=== PATIENT | male | born 1955 | race Caucasian/White ===

== ENCOUNTER 2022-05-24 08:04 | Emergency (ER) | payer OTHER, SELFPAY ==
[2022-05-24] VITALS (8 sets, daily range): BP systolic 122–141; BP diastolic 69–79; PULSE 63–84; RESP 18–22; TEMP 36.4; O2SAT 92–94; BMI 25.8
--- NOTE | 2022-05-24 08:07 | ED.SOB ---
HPI - SOB/Dyspnea General Chief Complaint: Shortness of Breath/Dyspnea Stated Complaint: RESP DISTRESS Time Seen by Provider: 05/24/22 08:05 History of Present Illness HPI Narrative: 67-year-old gentleman visiting from [place] for a week on the [facility]. He has a history of lymphoma and gastrointestinal stromal tumor (GIST). He has no respiratory history nor diabetes, hypertension, cardiac disease or any other health condition. He is receiving no active cancer treatment at this time but only periodic surveillance. He noticed the onset of shortness of breath yesterday. He was doing some cleaning in a [place] environment yesterday noticed a little bit of breathing difficulty. He had trouble sleeping during the night and woke up this morning quite short of breath and called 911. Paramedics arrived on scene and administered albuterol with some significant improvement. They noted his oxygen saturation to be as low as 89%. He was breathing much better after the treatment and got him up to walk for a road test and found that his saturations dropped again so they called for lift transport [place] hospital [place]. Airlift finds him to be breathing easily initially with the respiratory rate in the high 20s but then ultimately around 20 most recently. They had him on 2 L of oxygen. He reports feeling quite a bit better now compared to earlier. The current dyspnea or chest pain. He denies fever, cough, chills, nausea, vomiting, diarrhea or pain anywhere else or any other current symptoms. Related Data Previous Rx's Medication Instructions Recorded albuterol sulfate 90 mcg/actuation 2 puff inhalation Q3H PRN 05/24/22 aerosol inhaler shortness of breath or wheezing #6.7 grams nicotine (polacrilex) 4 mg gum 4 mg buccal Q1H PRN nicotine 05/24/22 cravings #100 ea nicotine 21 mg/24 hr daily 1 patch transdermal DAILY #28 ea 05/24/22 transdermal patch Review of Systems Review of Systems Narrative: Complete review of systems is negative other than as noted above. Patient History Social History Smoking Status: Current every day smoker Smoking Status: Current every day smoker Exam Narrative Exam Narrative: GENERAL: Alert, cooperative and in no distress. HEAD: Atraumatic. Normocephalic. EYES: Sclera are clear without icterus. Extraocular movements are full. ENT: No rhinorrhea. Oropharynx is moist. Mouth exam is benign. NECK: Supple. Full range of motion. CARDIOVASCULAR: Normal rate and rhythm without murmur gallop or rub. RESPIRATORY: Clear to auscultation. Breath sounds equal bilaterally. No wheezes, rales, or rhonchi. GASTROINTESTINAL: Abdomen soft, non-tender, nondistended. EXTREMITIES: No edema, full range of motion. No obvious trauma. BACK: Normal inspection, no CVA tenderness. NEURO: Nonfocal examination, normal speech, normal gait. SKIN: No rash or erythema of visible areas PSYCH: Normally oriented. Normal range of affect. Appropriate behavior Initial Vital Signs Initial Vital Signs: Vital Signs Temperature 97.5 F L 05/24/22 08:11 Pulse Rate 68 05/24/22 08:11 Respiratory Rate 20 05/24/22 08:11 Blood Pressure 141/76 H 05/24/22 08:11 Pulse Oximetry 94 05/24/22 08:11 Oxygen Delivery Method 05/24/22 08:11 Course Orders Ordered: ED Orders 05/24/22 08:08 XR chest 2V Stat Complete Blood Count AUTO DIFF Stat Comprehensive Metabolic Panel Stat EKG-12 Lead Stat Measure peak expiratory flow ONCE RT Consult Eval and Treat Now 05/24/22 08:20 COVID19 -Nasal RAPID/Pre-Proc Stat Vital Signs Vital signs: Vital Signs - 8 hr 05/24/22 08:11 05/24/22 08:23 05/24/22 08:24 Temperature 97.5 F L Pulse Rate 68 78 84 Respiratory Rate 20 20 Blood Pressure 141/76 H 141/76 H Pulse Oximetry 94 94 92 Oxygen Delivery Method Room Air Room Air 05/24/22 08:30 05/24/22 08:30 Temperature Pulse Rate 82 Respiratory Rate 22 Blood Pressure 127/79 Pulse Oximetry 93 Oxygen Delivery Method MDM - SOB/Dyspnea Lab Data Result diagrams: 05/24/22 08:08 05/24/22 08:08 Labs: Lab Results 05/24/22 05/24/22 05/24/22 Range/Units 08:08 08:08 08:08 WBC 11.7 H (4.5-11.0) X10^3/uL RBC 4.52 (4.5-5.9) X10^6/uL Hgb 14.3 (13.5-17.5) g/dL Hct 43.3 (41-53) % MCV 95.8 (80-100) fL MCH 31.7 (26-34) PG MCHC 33.1 (30-36) % RDW 14.1 (11.6-14.8) % Plt Count 303 (150-400) X10^3/uL Neut % (Auto) 69.5 (50-75) % Lymph % (Auto) 18.8 L (25-40) % Freeborn % (Auto) 9.2 (3-14) % Eos % (Auto) 1.7 L (2-4) % Baso % (Auto) 0.8 (0-2) % Neut # (Auto) 8100 H (5867-5420) /uL Lymph # (Auto) 2200 (8195-6178) /uL Freeborn # (Auto) 1100 H (0-900) /uL Eos # (Auto) 200 (0-450) /uL Baso # (Auto) 100 (0-100) /uL Sodium 141 (137-145) mmol/L Potassium 4.0 (3.4-5.1) mmol/L Chloride 106 (98-107) mmol/L Carbon Dioxide 28 (22-32) mmol/L BUN 13 (9-20) mg/dL Creatinine 0.52 L (0.66-1.25) mg/dL Estimated GFR > 60 (>60) mL/min BUN/Creatinine Ratio 25.0 H (6-22) Glucose 122 H (80-110) mg/dL Lactate Cancelled Calcium 8.8 (8.4-10.2) mg/dL Total Bilirubin 0.7 (0.2-1.3) mg/dL AST 30 (17-59) IU/L ALT 25 (<50) IU/L Alkaline Phosphatase 63 (38-126) U/L Total Protein 6.9 (6.3-8.2) g/dL Albumin 4.2 (3.5-5.0) g/dL Globulin 2.7 (1.7-4.1) g/dL Albumin/Globulin Ratio 1.6 (1.0-2.8) SARS-CoV-2 (PCR) (Negative) 05/24/22 Range/Units 08:20 WBC (4.5-11.0) X10^3/uL RBC (4.5-5.9) X10^6/uL Hgb (13.5-17.5) g/dL Hct (41-53) % MCV (80-100) fL MCH (26-34) PG MCHC (30-36) % RDW (11.6-14.8) % Plt Count (150-400) X10^3/uL Neut % (Auto) (50-75) % Lymph % (Auto) (25-40) % Freeborn % (Auto) (3-14) % Eos % (Auto) (2-4) % Baso % (Auto) (0-2) % Neut # (Auto) (6631-8541) /uL Lymph # (Auto) (2185-0750) /uL Freeborn # (Auto) (0-900) /uL Eos # (Auto) (0-450) /uL Baso # (Auto) (0-100) /uL Sodium (137-145) mmol/L Potassium (3.4-5.1) mmol/L Chloride (98-107) mmol/L Carbon Dioxide (22-32) mmol/L BUN (9-20) mg/dL Creatinine (0.66-1.25) mg/dL Estimated GFR (>60) mL/min BUN/Creatinine Ratio (6-22) Glucose (80-110) mg/dL Lactate Calcium (8.4-10.2) mg/dL Total Bilirubin (0.2-1.3) mg/dL AST (17-59) IU/L ALT (<50) IU/L Alkaline Phosphatase (38-126) U/L Total Protein (6.3-8.2) g/dL Albumin (3.5-5.0) g/dL Globulin (1.7-4.1) g/dL Albumin/Globulin Ratio (1.0-2.8) SARS-CoV-2 (PCR) Negative (Negative) Point of Care Testing Glucose POC 132 Imaging Data Chest x-ray: Radiologist's Impression: IMPRESSION:? Airspace opacities in the middle and upper lung almendarez bilaterally.? Consider CHF or an atypical infectious process. ? ? Dictated by: Davin Toscano M.D. on 05/24/2022 at 9:19 ? ? Approved by: Davin Toscano M.D. on 05/24/2022 at 9:21 ? ECG Data Interpretation: EKG obtained at 8:19 a.m. on May 24 shows sinus rhythm with a rate of 66, QTC 486, right bundle-branch block left axis deviation. No acute ST or T-wave change MDM Narrative Medical decision making narrative: This gentleman arrives by [facility] from [place]. He feels much better. His lung examination is normal. Laboratory data is relatively reassuring other than a minimally elevated white blood cell count. His EKG is also reassuring with a right bundle branch block but no ischemic change. His troponin is not elevated. His chest x-ray looks a little congested probably from early COPD. Some question of infection from the radiologist but I do not think clinically that he has an infection. I think it is much more likely environmental exposure exacerbating probably underlying COPD. We spent a long time discussing smoking cessation he agrees that it is time to pursue this more aggressively. I recommend he stay out of the [place] environment for now. I will prescribe an albuterol inhaler for him and I have given him careful return precautions as well. Discharge Plan Departure Patient Disposition: Home Clinical Impression: Wheezing, Environmental exposure Cigarette nicotine dependence Qualifiers: Substance use status: uncomplicated Qualified Code(s): F17.210 - Nicotine dependence, cigarettes, uncomplicated Activity Restrictions/Additional Instructions: It was nice to meet you today. Thank you for the interesting us with your care. I think that the symptoms you experience today are combination of things. I think he probably have a some significant underlying lung disease from your chronic smoking. Of course it is in your best interest to discontinue smoking as soon as possible. I will prescribe some nicotine replacement products and recommend you use them to help with smoking cessation. Apply a nicotine patch every morning upon arising and remove it before bed and Throat this rash. In addition to this you could also use nicotine gum up to 30 pieces a day. To forget to use the chew and park mechanism. I think things were exacerbated today because of the [place] environment you were working in. He should not return to that environment if at all possible. I think the albuterol will probably be helpful for you to use to treat any residual wheezing. Feel free to use 2 puffs every 4 hours as needed. Do not use this medicine if he do not feel short of breath or are not wheezing. You may need a more emergent care if things are getting worse which I do not expect but if they occur, please return to a local clinic or the local emergency department as soon as possible. Prescriptions: New albuterol sulfate 90 mcg/actuation HFA aerosol inhaler 2 puff inhalation Q3H PRN (Reason: shortness of breath or wheezing) Qty: 6.7 0RF nicotine 21 mg/24 hr patch 24 hour 1 patch transdermal DAILY Qty: 28 0RF Rx Instructions: Apply 1 patch upon arising each morning and remove before bedtime nicotine (polacrilex) 4 mg gum 4 mg buccal Q1H PRN (Reason: nicotine cravings) Qty: 100 0RF Rx Instructions: Aleksandr. Use up to 30 pieces per day
--- NOTE | 2022-05-24 08:08 | DI.RAD.S_ITS ---
PROCEDURE: XR CHEST 2V INDICATIONS: shortness of breath TECHNIQUE: 2 views of the chest were acquired. COMPARISON: None. FINDINGS: Surgical changes and devices: None. Lungs and pleura: The lungs are hyperexpanded. There are airspace opacities in the middle and upper lung almendarez bilaterally. No focal consolidation, mass, pneumothorax, or pleural effusion. Mediastinum: Mediastinal contours are normal. Heart size is normal. Bones and chest wall: No suspicious bony abnormalities. Soft tissues appear unremarkable. IMPRESSION: Airspace opacities in the middle and upper lung almendarez bilaterally. Consider CHF or an atypical infectious process. Dictated by: Davin Toscano M.D. on 05/24/2022 at 9:19 Approved by: Davin Toscano M.D. on 05/24/2022 at 9:21
[2022-05-24 08:19] LABS: Add Manual Diff / Slide Review NO; Basophils Absolute Auto 100 /uL (0-100); Basophils Percent Auto 0.8 % (0-2); Eosinophils Absolute Auto 200 /uL (0-450); Eosinophils Percent Auto 1.7 % (2-4); Hematocrit 43.3 % (41-53); Hemoglobin 14.3 g/dL (13.5-17.5); Lymphocytes Absolute Auto 2200 /uL (1100-4500); Lymphocytes Percent Auto 18.8 % (25-40); Mean Corpuscular HGB Conc 33.1 % (30-36); Mean Corpuscular Hemoglobin 31.7 PG (26-34); Mean Corpuscular Volume 95.8 fL (80-100); Monocytes Absolute Auto 1100 /uL (0-900); Monocytes Percent Auto 9.2 % (3-14); Neutrophils Absolute Auto 8100 /uL (1500-7000); Neutrophils Percent Auto 69.5 % (50-75); Platelet Count 303 X10^3/uL (150-400); Red Blood Cell Count 4.52 X10^6/uL (4.5-5.9); Red Cell Distribution Width 14.1 % (11.6-14.8); White Blood Cell Count 11.7 X10^3/uL (4.5-11.0)
[2022-05-24 08:31] LABS: Alanine Aminotransferase 25 IU/L (<50); Albumin 4.2 g/dL (3.5-5.0); Albumin Globulin Ratio 1.6 (1.0-2.8); Alkaline Phosphatase 63 U/L (38-126); Aspartate Aminotransferase 30 IU/L (17-59); Bilirubin Total 0.7 mg/dL (0.2-1.3); Blood Urea Nitrogen 13 mg/dL (9-20); Calcium 8.8 mg/dL (8.4-10.2); Carbon Dioxide 28 mmol/L (22-32); Chloride 106 mmol/L (98-107); Estimated Glomerular Filt Rate > 60 mL/min (>60); Globulin 2.7 g/dL (1.7-4.1); Glucose 122 mg/dL (80-110); HEMOLYSIS 21 (0-50); Sodium 141 mmol/L (137-145); Total Protein 6.9 g/dL (6.3-8.2)
[2022-05-24 08:39] LABS: COVID19 -Nasal RAPID Negative (Negative)
== END 2022-05-24 10:21 | disposition home or self-care (01) ==
PROVIDERS: Emergency Provider Family Medicine Addiction Medicine
DX: R06.2 Wheezing (principal); F17.210 Nicotine dependence, cigarettes, uncomplicated; T75.89XA Other specified effects of external causes, initial encounter; Z20.822 Contact with and (suspected) exposure to COVID-19
CPT/HCPCS: 71046; 80053; 85025; 87635; 93005; 93010; 99283; 99284; C9803